=== PATIENT | male | born 1980 | race Caucasian/White ===

== ENCOUNTER 2024-01-11 19:19 | Emergency (ER) | payer BC, SELFPAY ==
[2024-01-11 19:27] VITALS: BP 137/69
--- NOTE | 2024-01-11 19:30 | ED.PDOC.TRB ---
ED Provider Triage
-
Patient seen by provider in Triage?: Seen in Triage
Attestation: A medical screening examination has been initiated by a qualified medical provider. Based on the assessment performed at this time, it has been determined that an emergent medical condition may exist and the patient has been informed
that further medical evaluation and possible additional diagnostic testing may be needed.
HPI: 43yoM here with R flank pain that began at noon today. Associated with urinary frequency with loose bowel movement. Seen at urgent care and found to have hematuria.
GENERAL: Alert , in no apparent distress
EYE: No visual abnormalities.
NECK: Trachea midline
ENT: No visible abnormalities.
LUNGS: No acute respiratory distress
NEUROLOGICAL: Alert and oriented
SKIN: Skin intact. No visible changes.
MUSCULOSKELETAL: Moving extremities normally
PSYCH: Normal and appropriate interaction.
This is a medical evaluation conducted in person to initiate diagnostic evaluation and provide initial therapeutics. Please see further documentation by the treating clinician.
CBC, CMP, UA, and CT abdomen without contrast ordered.
[2024-01-11 19:51] LABS: % Basophils 0.5 % (0-2); % Eosinophils 0.4 % (0-6); % Immature Granulocytes 0.2 % (0-0.5); % Lymphocytes 14.9 % (20.5-51.1); % Monocytes 5.5 % (1.7-9.3); % Neutrophils 78.5 % (42.2-75.2); Absolute Lymphocytes 1.2 10^3/uL (1.2-3.4); Absolute Monocytes 0.5 10^3/uL (0.1-0.6); Absolute Neutrophils 6.6 10^3/uL (1.4-6.5); Hematocrit 40.6 % (39.0-52.0); Hemoglobin 14.4 g/dL (13.0-18.0); Mean Corp Hgb Conc. 35.5 g/dL (33.0-37.0); Mean Corpuscular Hgb 29.9 pg (27.0-31.0); Mean Corpuscular Volume 84.2 fL (80.0-94.0); Mean Platelet Volume 9.6 fL (7.4-10.4); Nucleated Red Blood Cells % 0 % (-); Platelet Count 232 10^3/uL (130-400); Red Blood Cell Count 4.82 10^6/uL (4.70-6.10); Red Cell Dist. Width 12.2 % (11.5-14.5); Urine Albumin Negative (Neg - Trace); Urine Bilirubin Negative (Negative); Urine Character Clear (Clear); Urine Color Yellow; Urine Glucose Negative (Negative); Urine Ketone Negative (Negative); Urine Leukocyte Negative (Negative); Urine Nitrite Negative (Negative); Urine Occult Blood 4+ (Negative); Urine Specific Gravity 1.015 (<1.030); Urine Urobilinogen Negative (Neg - 1+); White Blood Cell Count 8.3 10^3/uL (4.8-10.8)
[2024-01-11 19:57] LABS: Urine Squamous Cell 0-2 /LPF (Few)
[2024-01-11 19:58] LABS: Urine Bacteria Few (Negative); Urine Red Blood Cell >100 /HPF (0-2); Urine White Cell 0-2 /HPF (0-5)
[2024-01-11 20:16] LABS: ALT (SGPT) 28 U/L (0-50); AST (SGOT) 24 U/L (17-59); Albumin 4.6 g/dl (3.5-5.0); Alkaline Phosphatase 62 U/L (38-126); Blood Urea Nitrogen 19 mg/dl (9-20); Calcium 9.5 mg/dl (8.4-10.2); Carbon Dioxide 25 mmol/L (22-30); Chloride 101 mmol/L (98-107); Glucose 161 mg/dl (70-99); Potassium 4.1 mmol/L (3.5-5.1); Sodium 139 mmol/L (135-145); Total Bilirubin 0.8 mg/dl (0.2-1.3); Total Protein 6.9 g/dl (6.3-8.2); eGFR > 60.00
--- NOTE | 2024-01-11 21:38 | ED.GENMED ---
History of Present Illness
General
Chief Complaint: Flank Pain
Time Seen by Provider: 01/11/24 21:37
History of Present Illness
History of Present Illness:
HPI: Patient presents due to right flank pain. He went to urgent care and hematuria was noted. He was sent here for further evaluation By urgent care. He declines need for narcotic analgesia but does report urinary hesitancy and ongoing right
flank pain.
EXAM:
GENERAL: Well appearing in no distress
HEENT: Moist oral mucosa
ABDOMEN: Soft with no peritoneal signs, no tenderness, minimal if any right CVA tenderness
NEUROLOGIC: Excellent strength all extremities, no coordination deficits
PSYCHIATRIC: Appropriate mental status, normal insight and judgement
EXTREMITIES: Nontender, no edema, moves all extremities equally
SKIN: No rash, no lesions
TIME OF INITIAL ENCOUNTER: 10:40 PM
NUMBER AND COMPLEXITY OF PROBLEMS ADDRESSED AT THE ENCOUNTER
� Chronic conditions affecting care: Denies any significant past medical history
� Acute Exacerbation and/or Progression of Chronic Illness: This is an acute problem
� Differential Diagnosis includes: Ureteral stone/colic, UTI, pyelonephritis, nonspecific musculoskeletal back pain
AMOUNT AND/OR COMPLEXITY OF DATA TO BE REVIEWED AND ANALYZED
� I performed an independent evaluation of and my interpretation is:
EKG:
CT: CT imaging shows a 3 mm stone at the distal right UVJ
X-rays:
Laboratory Studies: White count and hemoglobin are normal, chemistries are normal however glucose is 161, 4+ blood noted on urinalysis but no clear sign of infection.
Other:
� Review of other/old records: No old records available for review in [facility]
� Clinical information was obtained by an independent historian: None needed
� Prescriptions/Medications Considered but not given: I offered and considered narcotic or at least IM Toradol. He declines.
� Further testing considered but not performed:
RISK OF COMPLICATIONS AND/OR MORBIDITY OR MORTALITY OF PATIENT MANAGEMENT
� Social determinants of health affecting care: Lives at home, works as a teacher at [employer]
� Discussion with other providers:
� Escalation of care including admission/observation vs risk of discharge considered: The patient appears very comfortable. He declined any significant treatment here including narcotic analgesia and IV Toradol and IV fluids. I
have given him the contact information for urology to follow-up with he needs to return here if worse.
Phy Exam
Physical Exam
Physical Exam:
See HPI
Course
Orders/Labs/Results
Orders:
Orders
01/11/24 19:32
CT Abd/pel Without Iv Or Oral Urgent
Comment:
Reason For Exam: R flank pain
01/11/24 19:42
Complete Blood Count/With Diff Urgent
Comprehensive Metabolic Panel Urgent
UA Reflex to Culture [Urinalysis Reflex To Culture] Urgent
Date Specimen was Collected: 01/11/24
Time Specimen was Collected: 19:31
Urine Microscopic Reflex Cult Urgent
01/11/24 22:47
Ibuprofen [Motrin] 800 mg PO NOW STA
Tamsulosin [Flomax] 0.4 mg PO NOW STA
Abnormal Lab Results
01/11/24
19:42
Absolute Neuts (auto) 6.6 H 10^3/uL
(1.4-6.5)
Neutrophils % 78.5 H %
(42.2-75.2)
Lymphocytes % 14.9 L %
(20.5-51.1)
Glucose 161 H mg/dl
(70-99)
Ur Occult Blood Reflex 4+ A
(Negative)
Urine RBC >100 A /HPF
(0-2)
Urine Bacteria (Reflex) Few A
(Negative)
01/11/24 19:42
01/11/24 19:42
Vital Signs
Initial and Last Documented VS:
Initial Vital Signs
Temp Pulse Resp BP Pulse Ox
98.6 F 68 16 137/69 100
01/11/24 19:27 01/11/24 19:27 01/11/24 19:27 01/11/24 19:27 01/11/24 19:27
Last Documented Vital Signs
Temp Pulse Resp BP Pulse Ox
98.6 F 68 16 137/69 100
01/11/24 19:27 01/11/24 19:27 01/11/24 19:27 01/11/24 19:27 01/11/24 19:27
*Critical Care Note
Total Time (30-74mins, 75-104mins- exclusive of procedures): Not Applicable
ED Attending Note
-
Portions of this chart may have been created with voice recognition software.� Occasional wrong word or��sound alike� substitutions may have occurred due to the inherent limitations of voice recognition software.
Discharge Plan
Departure
Patient Disposition: Home (Routine Discharge)
Date of Disposition: 01/11/24
Time of Disposition: 22:47
Patient with high blood pressure during this ER visit?: Yes
Discharge Problem:
Right distal ureteral calculus
Instructions: Kidney Stones (DC), How to Strain Your Urine
Prescriptions:
New
tamsulosin [Flomax] 0.4 mg capsule
0.4 mg PO HS Qty: 10 0RF
oxycodone-acetaminophen [Endocet] 5-325 mg tablet
1 - 2 tab PO Q8H PRN (Reason: Pain) Qty: 14 0RF
Referrals:
Roman Vivas MD [Family Provider] -
Deep Pierre MD [Active] - Follow up in 2-3 days
Activity Restrictions/Additional Instructions:
I recommend 3-4 [id number] ibuprofen (Motrin) every 8 hours with food for a few days. Return here if worse. I have given the contact information for a local urologist. You can take Flomax once a day which may help to promote stone passage.
Try to strain your urine. I have sent a prescription for Percocet and Flomax to your pharmacy.
Interventions
Interventions:
*Risk Screen - Suicide Last Done: 01/11/24 19:20
*General Assessment Last Done: 01/11/24 19:27
*Neglect/Abuse Screening Last Done: 01/11/24 19:27
ED- Fall Risk Assessment Last Done: 01/11/24 21:32
*ED COVID-19 Vaccine History Last Done: 01/11/24 21:32
EG-Bbchns-Icromtngsu Assessment Last Done: 01/11/24 21:32
ED-Male Genitourinary Assessment Last Done: 01/11/24 21:32
Discharge Date and Time
Print Language: YORUBA
[2024-01-11] MEDS: FLOMAX 0.4 MG PO (23:30)
[2024-01-11] MEDS: MOTRIN 800 MG PO (23:30)
[2024-01-11 23:35] VITALS: BP 130/62
== END 2024-01-11 23:35 | disposition home or self-care (01) ==
LOC: EMR 19:19
PROVIDERS: Physician Assistant; EMERGENCY PHYSICIAN Emergency Medicine; FAMILY PHYSICIAN Family Medicine
DX: N13.2 Hydronephrosis with renal and ureteral calculous obstruction (principal); R03.0 Elevated blood-pressure reading, without diagnosis of hypertension
CPT/HCPCS: 99284; 74176; 80053; 81003; 81015; 85025